=== PATIENT | female | born 1985 | race Caucasian/White ===

== ENCOUNTER 2019-09-05 19:04 | Emergency (ER) | payer OTHER ==
[~2019-09-05] VITALS: Ht 180.3 cm; Wt 78.9 kg
[2019-09-05] MEDS ORDERED: MACROBID 100 M100 MG PO (22:30)
== END 2019-09-05 22:46 | disposition home or self-care (01) ==
LOC: ED 19:04
DX: R10.31 Right lower quadrant pain (principal); F17.200 Nicotine dependence, unspecified, uncomplicated; Z88.0 Allergy status to penicillin; Z88.2 Allergy status to sulfonamides; Z88.1 Allergy status to other antibiotic agents; Z88.8 Allergy status to other drugs, medicaments and biological substances; Z90.710 Acquired absence of both cervix and uterus
CPT/HCPCS: 74177; 80053; 81001; 85025; 87088; 96360; 99284-25; J7030; Q9967

== ENCOUNTER 2019-10-01 16:17 | Emergency (ER) | payer OTHER ==
[~2019-10-01] VITALS: Ht 180.3 cm; Wt 78.9 kg
[~2019-10-01 16:17] MED LIST: MACROBID 100 M100 MG PO
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
[2019-10-01] MEDS ORDERED: DAY TIME COLD-1 EAC1 PO (16:29)
[2019-10-01] MEDS ORDERED: IBUPROFEN800 MG PO (16:29)
[2019-10-01] MEDS ORDERED: ONDANSETRON ODT8 MG PO (17:35)
== END 2019-10-01 17:54 | disposition home or self-care (01) ==
LOC: ED 16:17
DX: J10.1 Influenza due to other identified influenza virus with other respiratory manifestations (principal); F17.200 Nicotine dependence, unspecified, uncomplicated; Z88.0 Allergy status to penicillin; Z88.2 Allergy status to sulfonamides; Z88.1 Allergy status to other antibiotic agents; Z88.8 Allergy status to other drugs, medicaments and biological substances
CPT/HCPCS: 87502; 99283

== ENCOUNTER 2020-05-31 01:08 | Emergency (ER) | payer OTHER ==
[~2020-05-31] VITALS: Ht 180.3 cm; Wt 78.9 kg
[~2020-05-31 01:08] MED LIST changes: +DAY TIME COLD-1 EAC1 PO; +IBUPROFEN800 MG PO; +ONDANSETRON ODT8 MG PO
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
[2020-05-31] MEDS ORDERED: FLUOXETINE HCL20 MG PO (01:23)
== END 2020-05-31 02:41 | disposition home or self-care (01) ==
LOC: ED 01:08
DX: S06.0X9A Concussion with loss of consciousness of unspecified duration, initial encounter (principal); S00.11XA Contusion of right eyelid and periocular area, initial encounter; F17.200 Nicotine dependence, unspecified, uncomplicated; Z88.0 Allergy status to penicillin; Z88.2 Allergy status to sulfonamides; Z88.8 Allergy status to other drugs, medicaments and biological substances; Y04.2XXA Assault by strike against or bumped into by another person, initial encounter
CPT/HCPCS: 70450; 70486; 72125; 99284-25